=== PATIENT | male | born 1930 | race Caucasian/White ===

== ENCOUNTER 2018-07-04 13:44 | Inpatient (IN) ==
[2018-07-04] MEDS ORDERED: ONDANSETRON 4 MG/2 ML VIAL IV PRN (18:15)
[2018-07-04] MEDS: SODIUM CHLORIDE 0.9% 1,000 ML IV SCH (18:44)
[2018-07-04] MEDS ORDERED: ALBUTEROL/IPRATROPIUM 3 ML NEB RESP TX PRN (19:01)
[2018-07-04] MEDS: ATORVASTATIN 80 MG TABLET PO SCH (21:19)
[2018-07-05] MEDS: hydrALAZINE 20 MG/1 ML VIAL IV PRN ×2 (00:47→11:55)
[2018-07-05 01:48] LABS: Apearance,Urine CLEAR (Clear); Bilirubin,Urine Negative (Negative); Blood, Urine Large mg/dL (Negative); Glucose,Urine (UA) Negative (Negative); Hyaline Casts,Urine 1 /LPF (0-3); Ketones,Urine Negative (Negative); Nitrite,Urine Negative (Negative); Protein,Urine 100 MG/DL; RBC,Urine 63 /HPF (0-4); Urine Color Yellow (Yellow); Urine Urobilinogen < 2.0 EU/DL (0.2-1.0); WBC,Urine 3 /HPF (0-6)
[2018-07-05] MEDS: SODIUM CHLORIDE 0.9% 1,000 ML IV SCH ×2 (04:29→22:00)
[2018-07-05 05:50] LABS: Basophils % 0.3 % (0.0-0.8); Eosinophils # 0.1 10*3/uL (0.0-0.87); Eosinophils % 0.6 % (0.00-10.9); Hematocrit 43.1 VOL% (42.0-52.0); Hemoglobin 14.2 GM/DL (14.0-18.0); Immature Granulocytes % 0.4 %; Immature Granulocytes Absolute 0.04 #; Lymphocytes # 1.3 10*3/uL (1.4-4.0); Lymphocytes % 13.3 % (21.2-54.2); Mean Corpuscular HGB Conc 32.9 GM/DL (32-36); Mean Corpuscular Hemoglobin 32 PG (27-34); Mean Corpuscular Volume 96.2 FL (87-102); Mean Platelet Volume 11.3 FL (9.6-12.0); Monocytes # 0.6 10*3/uL (0.11-0.8); Monocytes % 5.6 % (1.7-12.7); Neutrophils % 79.8 % (38.7-73.9); Platelet Count 103 T/CUMM (130-400); Red Blood Count 4.48 MC/CUMM (3.8-5.5); Red Cell Distribution Width 14.7 % (9.3-17.3)
[2018-07-05 06:14] LABS: Calcium 10.1 MG/DL (8.5-10.1); Osmolality,Calculated 291.1 MOS/KG (273-304); Potassium 4.4 MMOL/L (3.5-5.1); Risk Ratio 3.69; VLDL CHOLESTEROL 26.6 MG/DL
[2018-07-05] MEDS: ENOXAPARIN 30 MG/0.3 ML SYRINGE SUBCUT SCH (11:57)
[2018-07-05] MEDS: ASPIRIN 300 MG SUPP RECTAL SCH (11:58)
[2018-07-05] MEDS: ATORVASTATIN 80 MG TABLET PO SCH (21:57)
[2018-07-06 02:52] LABS: Basophils % 0.2 % (0.0-0.8); Eosinophils % 0.5 % (0.00-10.9); Hematocrit 40.6 VOL% (42.0-52.0); Hemoglobin 13.2 GM/DL (14.0-18.0); Immature Granulocytes % 0.3 %; Immature Granulocytes Absolute 0.03 #; Lymphocytes # 1.2 10*3/uL (1.4-4.0); Lymphocytes % 13.9 % (21.2-54.2); Mean Corpuscular HGB Conc 32.5 GM/DL (32-36); Mean Corpuscular Hemoglobin 32 PG (27-34); Mean Corpuscular Volume 98.8 FL (87-102); Mean Platelet Volume 10.9 FL (9.6-12.0); Monocytes # 0.6 10*3/uL (0.11-0.8); Monocytes % 7.5 % (1.7-12.7); Neutrophils # 6.7 10*3/uL (1.4-7.4); Neutrophils % 77.6 % (38.7-73.9); Platelet Count 101 T/CUMM (130-400); Red Blood Count 4.11 MC/CUMM (3.8-5.5); Red Cell Distribution Width 14.7 % (9.3-17.3); White Blood Count 8.6 T/CUMM (4-12)
[2018-07-06 03:13] LABS: Calcium 9.7 MG/DL (8.5-10.1); Osmolality,Calculated 298.7 MOS/KG (273-304); Potassium 4.6 MMOL/L (3.5-5.1)
[2018-07-06] MEDS: SODIUM CHLORIDE 0.9% 1,000 ML IV SCH ×2 (07:14→19:47)
[2018-07-06] MEDS: hydrALAZINE 20 MG/1 ML VIAL IV PRN ×3 (10:30→19:43)
[2018-07-06] MEDS: ENOXAPARIN 30 MG/0.3 ML SYRINGE SUBCUT SCH (10:32)
[2018-07-06] MEDS: ASPIRIN 300 MG SUPP RECTAL SCH (10:32)
[2018-07-06] MEDS: CLOPIDOGREL 75 MG TABLET PO SCH (10:33)
[2018-07-06] MEDS: ATORVASTATIN 80 MG TABLET PO SCH (20:39)
[2018-07-07] MEDS: hydrALAZINE 20 MG/1 ML VIAL IV PRN ×4 (04:04→20:37)
[2018-07-07] MEDS: SODIUM CHLORIDE 0.9% 1,000 ML IV SCH ×2 (05:07→20:38)
[2018-07-07] MEDS: ENOXAPARIN 30 MG/0.3 ML SYRINGE SUBCUT SCH (09:33)
[2018-07-07] MEDS: amLODIPine 10 MG TABLET PO SCH (09:33)
[2018-07-07] MEDS: CLOPIDOGREL 75 MG TABLET PO SCH (09:33)
[2018-07-07] MEDS: CETIRIZINE 10 MG TABLET PO SCH (09:33)
[2018-07-07] MEDS: METOPROLOL SUCCINATE XL 50 MG TABLET PO SCH (09:35)
[2018-07-07] MEDS: ASPIRIN 300 MG SUPP RECTAL SCH (09:36)
[2018-07-07] MEDS: SIMVASTATIN 20 MG TABLET PO SCH (20:40)
[2018-07-07] MEDS: ATORVASTATIN 80 MG TABLET PO SCH (20:41)
[2018-07-08] MEDS: hydrALAZINE 20 MG/1 ML VIAL IV PRN ×2 (04:35→13:31)
[2018-07-08 05:19] LABS: Basophils % 0.1 % (0.0-0.8); Eosinophils % 0.1 % (0.00-10.9); Hematocrit 44.9 VOL% (42.0-52.0); Hemoglobin 14.4 GM/DL (14.0-18.0); Immature Granulocytes % 0.5 %; Immature Granulocytes Absolute 0.05 #; Lymphocytes # 0.8 10*3/uL (1.4-4.0); Lymphocytes % 7.7 % (21.2-54.2); Mean Corpuscular HGB Conc 32.1 GM/DL (32-36); Mean Corpuscular Hemoglobin 32 PG (27-34); Mean Corpuscular Volume 99.3 FL (87-102); Mean Platelet Volume 11.4 FL (9.6-12.0); Monocytes # 0.6 10*3/uL (0.11-0.8); Monocytes % 5.7 % (1.7-12.7); Neutrophils # 9.1 10*3/uL (1.4-7.4); Neutrophils % 85.9 % (38.7-73.9); Platelet Count 114 T/CUMM (130-400); Red Blood Count 4.52 MC/CUMM (3.8-5.5); Red Cell Distribution Width 15.3 % (9.3-17.3); White Blood Count 10.6 T/CUMM (4-12)
[2018-07-08 05:25] LABS: Calcium 11.4 MG/DL (8.5-10.1); Osmolality,Calculated 316.3 MOS/KG (273-304)
[2018-07-08] MEDS: SODIUM CHLORIDE 0.45% 1,000 ML IV SCH (10:04)
[2018-07-08] MEDS: cefTRIAXone 1,000 MG in SYRINGE 1 EACH IV SCH (10:04)
[2018-07-08] MEDS: ENOXAPARIN 30 MG/0.3 ML SYRINGE SUBCUT SCH (10:05)
[2018-07-08] MEDS: METOPROLOL SUCCINATE XL 50 MG TABLET PO SCH ×2 (10:05→10:19)
[2018-07-08] MEDS: amLODIPine 10 MG TABLET PO SCH ×2 (10:05→10:19)
[2018-07-08] MEDS: hydrALAZINE 25 MG TABLET PO SCH ×3 (10:05→22:33)
[2018-07-08] MEDS: ASPIRIN 300 MG SUPP RECTAL SCH (10:06)
[2018-07-08] MEDS: CLOPIDOGREL 75 MG TABLET PO SCH (10:06)
[2018-07-08] MEDS: CETIRIZINE 10 MG TABLET PO SCH (10:18)
[2018-07-08] MEDS: SODIUM CHLORIDE 0.9% 1,000 ML IV SCH (10:25)
[2018-07-08] MEDS: CHLORHEXIDINE 0.12% ORAL RINSE 60 ML BOTTLE SWISH/SPIT SCH ×2 (14:43→22:36)
[2018-07-08] MEDS ORDERED: FLUoxetine 20 MG CAPSULE PO SCH (21:00)
[2018-07-08] MEDS: ATORVASTATIN 80 MG TABLET PO SCH (22:36)
[2018-07-08] MEDS: SIMVASTATIN 20 MG TABLET PO SCH (22:36)
[2018-07-08] MEDS: DEXTROSE 5% 1,000 ML IV SCH (22:36)
[2018-07-09] MEDS: cloNIDine 0.3 MG/24 HR PATCH TRANSDERM SCH ×2 (00:37→17:52)
[2018-07-09] MEDS ORDERED: TUBERCULIN SKIN TEST 0.1 ML SYRINGE INTRADERM ONE (11:42)
[2018-07-09 11:54] VITALS: BP 190/95
[2018-07-09] MEDS: DEXTROSE 5% 1,000 ML IV SCH (17:51)
[2018-07-09] MEDS: SODIUM CHLORIDE 0.45% 1,000 ML IV SCH (17:51)
[2018-07-09] MEDS: hydrALAZINE 25 MG TABLET PO SCH (17:52)
[2018-07-09] MEDS: ASPIRIN 300 MG SUPP RECTAL SCH (17:52)
[2018-07-09] MEDS: cefTRIAXone 1,000 MG in SYRINGE 1 EACH IV SCH (17:52)
[2018-07-09] MEDS: ENOXAPARIN 30 MG/0.3 ML SYRINGE SUBCUT SCH (17:52)
[2018-07-09] MEDS: amLODIPine 10 MG TABLET PO SCH (17:53)
[2018-07-09] MEDS: CHLORHEXIDINE 0.12% ORAL RINSE 60 ML BOTTLE SWISH/SPIT SCH (17:53)
[2018-07-09] MEDS: CLOPIDOGREL 75 MG TABLET PO SCH (17:53)
[2018-07-09] MEDS: METOPROLOL SUCCINATE XL 50 MG TABLET PO SCH (17:53)
[2018-07-09] MEDS: CETIRIZINE 10 MG TABLET PO SCH (17:53)
== END 2018-07-09 15:03 | disposition hospice, home (50) | DRG 65 ==
LOC: SUATTDRO 15:07 → N.4E 15:07
PROVIDERS: ADMIT Internal Medicine; ATTEND Internal Medicine